=== PATIENT | female | born 1965 | race Caucasian/White ===

== ENCOUNTER 2017-02-22 07:01 | Emergency (ER) | payer OTHER ==
[~2017-02-22] VITALS: Ht 162.6 cm; Wt 68.0 kg
[2017-02-22] MEDS ORDERED: NORCO 5-325 TA1 EACH PO (07:22)
[2017-02-22 07:51] VITALS: BP 158/111
== END 2017-02-22 08:11 | disposition home or self-care (01) ==
LOC: ER 07:01
DX: S60.222A Contusion of left hand, initial encounter (principal); W01.0XXA Fall on same level from slipping, tripping and stumbling without subsequent striking against object, initial encounter; Y93.01 Activity, walking, marching and hiking; Y92.89 Other specified places as the place of occurrence of the external cause; Y99.8 Other external cause status